=== PATIENT | male | born 1980 | race Caucasian/White ===

== ENCOUNTER 2018-05-07 09:18 | Emergency (ER) | payer SELFPAY ==
[2018-05-07 09:19] VITALS: BP 154/92; PULSE 78; RESP 18; TEMP 36.6; O2SAT 99; BMI 26.9
--- NOTE | 2018-05-07 09:40 | ED.VISSUMM ---
- ER Visit Summary Date of Service: 05/07/18 Chief Complaint: Painful swallowing and subjective feeling of shortness of breath History of Present Illness: The patient is a 38 M. Currently has no primary care physician. Does smoke about 1 pack of cigarettes per day and drinks daily. Patient has had reflux in the past. He states that over the last 1-2 weeks he has been working in a very [place] environment he works as an electrician's helper. He denies any URI symptoms. He states that these have been swallow. He has pain both with liquids and solids. Denies any weight change. He denies any hemoptysis nor hematemesis. He denies any melena. He denies any chest pain other than with swallowing. Physical Examination: Well-appearing middle-age male. Vital signs are stable and afebrile. Pulse ox 99% on room air no signs of hypoxia. He is in no distress. He sitting comfortably in bed. H EENT exam unremarkable. Posterior pharynx normal. Neck nontender. No lymphadenopathy. Lungs clear to auscultation bilaterally. Heart regular rate and rhythm no murmur. Abdomen is soft and nontender. He is moving all 4 extremities. Calves are nontender without edema or cords. Neurologically is awake and alert with no focal motor deficits. Test Results: EKG shows normal sinus rhythm rate is 65 with no abnormalities. Two-view chest x-ray shows no acute abnormality. Normal cardiac silhouette, mediastinum and lung hickman. Emergency Department Course and Treatment: Patient's symptoms are more consistent with the reflux. This does not sound cardiac. P.o. Protonix and GI cocktail. Repeat exam at 1042 the patient is doing well. Feels somewhat improved after GI cocktail and p.o. Protonix. Clinically I think this may be secondary to reflux and irritation of both his esophagus and trachea. I will start him on Protonix. Have him follow-up. Treatment Plan: Strongly encouraged to stop smoking altogether. And decrease alcohol use. Prescription for Protonix. And follow-up. Disposition: Discharge Impression: Acute esophageal reflux This note was generated with [email or web address] software. It may contain incorrect words, spelling, and punctuation that were not noted in review of the chart prior to signing ED Disposition - Plan for ED Patient: Chief Complaint: Shortness of Breath Referrals: Care Physician,No Primary [Primary Care Provider] -
--- NOTE | 2018-05-07 09:41 | NURSING ---
NO OLD EKGS
--- NOTE | 2018-05-07 09:45 | ED.DCSUM_ITS ---
- ER Visit Summary Date of Service: 05/07/18 Chief Complaint: Painful swallowing and subjective feeling of shortness of breath History of Present Illness: The patient is a 38 M. Currently has no primary care physician. Does smoke about 1 pack of cigarettes per day and drinks daily. Patient has had reflux in the past. He states that over the last 1-2 weeks he has been working in a very [place] environment he works as an high voltage electrician. He denies any URI symptoms. He states that these have been swallow. He has pain both with liquids and solids. Denies any weight change. He denies any hemoptysis nor hematemesis. He denies any melena. He denies any chest pain other than with swallowing. Physical Examination: Well-appearing middle-age male. Vital signs are stable and afebrile. Pulse ox 99% on room air no signs of hypoxia. He is in no distress. He sitting comfortably in bed. H EENT exam unremarkable. Posterior pharynx normal. Neck nontender. No lymphadenopathy. Lungs clear to auscultation bilaterally. Heart regular rate and rhythm no murmur. Abdomen is soft and nontender. He is moving all 4 extremities. Calves are nontender without edema or cords. Neurologically is awake and alert with no focal motor deficits. Test Results: EKG shows normal sinus rhythm rate is 65 with no abnormalities. Two-view chest x-ray shows no acute abnormality. Normal cardiac silhouette, mediastinum and lung hickman. Emergency Department Course and Treatment: Patient's symptoms are more consistent with the reflux. This does not sound cardiac. P.o. Protonix and GI cocktail. Repeat exam at 1042 the patient is doing well. Feels somewhat improved after GI cocktail and p.o. Protonix. Clinically I think this may be secondary to reflux and irritation of both his esophagus and trachea. I will start him on Protonix. Have him follow-up. Treatment Plan: Strongly encouraged to stop smoking altogether. And decrease alcohol use. Prescription for Protonix. And follow-up. Disposition: Discharge Impression: Acute esophageal reflux This note was generated with [employer] software. It may contain incorrect words, spelling, and punctuation that were not noted in review of the chart prior to signing ED Disposition - Plan for ED Patient: Chief Complaint: Shortness of Breath Referrals: Care Physician,No Primary [Primary Care Provider] -
[2018-05-07] MEDS: Pantoprazole Sodium 40 MG Tablet PO (10:03)
[2018-05-07] MEDS: Mag Hydrox/Al Hydrox/Simeth 30 ML UDC PO (10:03)
[2018-05-07 10:05] VITALS: O2SAT 100
--- NOTE | 2018-05-07 10:43 | ED.DEP ---
ED Disposition - Plan for ED Patient: Disposition: Home or Assisted Living Chief Complaint: Shortness of Breath Instructions: ED GERD Prescriptions: Pantoprazole Sodium [Protonix] 40 mg PO DAILY #30 tab Referrals: Garcia Oconnor MD [STAFF PHYSICIAN] - 1-2 Weeks Additional Instructions: Protonix is anti-reflux medication. Start with 1 pill twice a day and and after we just use it once daily. Try to stop smoking altogether. Decrease her alcohol use to once or twice a week. Follow-up with a local primary care physician.
[2018-05-07 10:47] VITALS: BP 118/74; PULSE 69; RESP 15; O2SAT 99
== END 2018-05-07 10:48 | disposition home or self-care (01) ==
PROVIDERS: Emergency Provider Emergency Medicine
DX: K21.9 Gastro-esophageal reflux disease without esophagitis (principal); Z72.0 Tobacco use
CPT/HCPCS: 71046; 93005; 99283